=== PATIENT | male | born 1975 | race Two or more races ===

== ENCOUNTER 2023-08-07 06:08 | Day surgery (SDC) | payer BC, SELFPAY ==
[2023-07-24 08:26] VITALS: BMI 37.4
[2023-07-24 09:01] LABS: Hematocrit 43.4 % (39.0-52.0); Mean Corp Hgb Conc. 32.3 g/dL (33.0-37.0); Mean Corpuscular Hgb 25.2 pg (27.0-31.0); Mean Corpuscular Volume 78.1 fL (80.0-94.0); Mean Platelet Volume 10.7 fL (7.4-10.4); Platelet Count 201 10^3/uL (130-400); Red Blood Cell Count 5.56 10^6/uL (4.70-6.10); Red Cell Dist. Width 15.4 % (11.5-14.5); White Blood Cell Count 6.6 10^3/uL (4.8-10.8)
[2023-07-24 09:06] LABS: APTT 28.5 Sec (23.4-35.0); INR 1.06; PT 13.8 Sec (11.4-14.6)
[2023-07-24 09:36] LABS: Glycohemoglobin (HgbA1c) 5.8 % (4.0-5.6)
[2023-07-24 10:54] LABS: ALT (SGPT) 35 U/L (0-50); AST (SGOT) 32 U/L (17-59); Albumin 4.2 g/dl (3.5-5.0); Alkaline Phosphatase 54 U/L (38-126); Blood Urea Nitrogen 26 mg/dl (9-20); Calcium 9.4 mg/dl (8.4-10.2); Carbon Dioxide 27 mmol/L (22-30); Chloride 107 mmol/L (98-107); Estimated Creatinine Clearance 117 ml/min; Glucose 99 mg/dl (70-99); Potassium 4.6 mmol/L (3.5-5.1); Sodium 142 mmol/L (135-145); Total Bilirubin 0.5 mg/dl (0.2-1.3); Total Protein 7.1 g/dl (6.3-8.2); eGFR > 60.00
[2023-08-07] VITALS (10 sets, daily range): BP systolic 118–144; BP diastolic 79–99; BMI 37.4
[2023-08-07] MEDS: LOVENOX 40 MG SC (07:06)
[2023-08-07] MEDS: TYLENOL 1000 MG PO (07:06)
[2023-08-07] MEDS: NORMOSOL-R 1000 IV (07:11)
--- NOTE | 2023-08-07 09:17 | W.IMMPOSTOP ---
Documented by User: TERA Black 08/07/23 09:20
Surgical Immed Post Op Note
-
Primary Surgeon: Stephen Gaona M.D.
Assisting Surgeon: Kyra Ovalle
Pre-op Diagnosis: Cecal polyp
Post-op Diagnosis: Cecal polyp
Procedure Performed: laparoscopic appendectomy
Anesthesia Type: GET
Specimen / Cultures: Appendix
Estimated Blood Loss:
Complications: None
Operative Findings:

Documented by User: Prosper Gaona MD 08/07/23 09:23
Surgical Immed Post Op Note
-
Primary Surgeon: Stephen Gaona M.D.
Assisting Surgeon: Kyra Ovalle
Pre-op Diagnosis: Appendiceal polyp
Post-op Diagnosis: Same
Procedure Performed: laparoscopic appendectomy
Anesthesia Type: GET
Specimen / Cultures: Appendix
Estimated Blood Loss: 5cc
Complications: None
Operative Findings: Normal appendix
Patient's updated
[2023-08-07] MEDS: SUBLIMAZE 50 MCG IV (09:56)
[2023-08-07] MEDS: MOTRIN 600 MG PO (11:10)
[2023-08-07] MEDS: ROXICODONE 5 MG PO (11:38)
== END 2023-08-07 11:45 | disposition home or self-care (01) ==
LOC: SDS 06:08
PROVIDERS: ATTENDING PHYSICIAN Surgery
DX: D12.1 Benign neoplasm of appendix (principal)
CPT/HCPCS: 44970; 88304; 36415; 80053; 83036; 85027; 85610; 85730; 86850; 86900; 86901; J1335